=== PATIENT | female | born 1950 | race Caucasian/White ===

== ENCOUNTER 2018-08-13 11:39 | Emergency (ER) | payer BC ==
[~2018-08-13] VITALS: Ht 160 cm; Wt 60.0 kg
[2018-08-13 11:43] VITALS: BP 137/59; PULSE 80; TEMP 98.7
[2018-08-13] MEDS ORDERED: ZYRTEC 10MG10 MG PO (11:58)
[2018-08-13] MEDS ORDERED: PRESERVISIONLUT (11:58)
[2018-08-13] MEDS ORDERED: GENTAMICIN EYE D5 ML OD (12:00)
== END 2018-08-13 12:35 | disposition home or self-care (01) ==
LOC: COL.ER 11:39
DX: B99.9 Unspecified infectious disease (principal); H10.89 Other conjunctivitis

== ENCOUNTER → 2020-09-11 | Outpatient (CLI) | payer MEDICARE, BC ==
[~2020-09-11] MED LIST: GENTAMICIN EYE D5 ML OD; PRESERVISIONLUT; ZYRTEC 10MG10 MG PO
== END ==
LOC: MC.RAD 14:00
DX: R92.8 Other abnormal and inconclusive findings on diagnostic imaging of breast (principal)

== ENCOUNTER 2023-10-04 14:56 | Day surgery (SDC) | payer MEDICARE, BC ==
[2023-10-04] VITALS (7 sets, daily range): BP systolic 116–150; BP diastolic 44–71; PULSE 61–77; TEMP 98.3
[~2023-10-04] VITALS: Ht 162.6 cm; Wt 59.0 kg
[~2023-10-04 14:56] MED LIST changes: +AMOXICILLIN 8751 TAB PO; +DOXYCYCLINE 10100 MG PO; +NORCO 325 MG-51 TAB PO; +TRAVEL SICKNESS25 MG PO; +ZOFRAN 4MG T4 MG/TAB PO
[2023-10-04] MEDS ORDERED: ZETIA 10MG TAB10 MG PO (15:11)
[2023-10-04] MEDS ORDERED: BENTYL 10MG10 MG/CAP PO (15:12)
[2023-10-04] MEDS ORDERED: STOOL SOFTENER100 M2 PO (15:13)
--- NOTE | 2023-10-04 16:41 | NUR ---
PT ARRIVED TO FLOOR FROM DIRECT ADMIT AT [facility] 1515. PT IS ALERT AND ORIENTED. PT HAS NO PAIN. THIS NURSE AND THE CHARGE NURSE BOTH TRIED TO START IV ON PT AND NIETHER ATTEMPT WAS SUCCESSFUL. PACU NURSES CAME TO GET PT FOR SURGERY. THEY SAID THEY WOULD ATTEMPT TO START IV.
[2023-10-04] MEDS ORDERED: NORCO 325 MG-51 TAB PO (17:02)
[2023-10-04] MEDS ORDERED: PYRIDIUM 100MG100 MG PO (17:02)
--- NOTE | 2023-10-04 19:00 | NUR ---
returned from PACU, awake and alert, IV infusing, assisted into bathroom but was unable to void at this time
--- NOTE | 2023-10-04 19:30 | NUR ---
sitting up in bed and having something to eat and tolerates well, at bedside
--- NOTE | 2023-10-04 21:00 | NUR ---
assisted up to bathroom by DROP WIRE OPERATOR and was able to void, then back to bed and ready to go home
--- NOTE | 2023-10-04 21:30 | NUR ---
assessment completed, heart rate strong and regular, lungs CTA, bowel sounds present in 4 quads, peripheral pulses present in 4 extremites, she remains alert and oriented, skin warm and dry
--- NOTE | 2023-10-04 21:45 | NUR ---
up and getting dressed, discharge instructions given to patient and her , verbalizes understanding
--- NOTE | 2023-10-04 22:07 | NUR ---
discharged per WC
== END 2023-10-04 22:07 | disposition home or self-care (01) ==
LOC: SDCO 14:56 → SURG 14:59 → SDCO 17:00
DX: N20.1 Calculus of ureter (principal); N13.4 Hydroureter; N39.3 Stress incontinence (female) (male)
CPT/HCPCS: OP; C1769; C2617; J0690; J1100; J2405; J2704; J3010; Q9967

== ENCOUNTER 2023-10-13 09:07 | Day surgery (SDC) | payer MEDICARE, BC ==
[2023-10-13] VITALS (7 sets, daily range): BP systolic 108–153; BP diastolic 42–89; PULSE 60–78; TEMP 97–98
[~2023-10-13] VITALS: Ht 162.6 cm; Wt 58.8 kg
[~2023-10-13 09:07] MED LIST changes: +BENTYL 10MG10 MG/CAP PO; +PYRIDIUM 100MG100 MG PO; +STOOL SOFTENER100 M2 PO; +ZETIA 10MG TAB10 MG PO
[2023-10-13] MEDS ORDERED: MIRALAX PA17 GM/Dose PO (10:19)
[2023-10-13] MEDS ORDERED: CREON 120000 U-1 ECC PO (10:20)
[2023-10-13] MEDS ORDERED: VALTREX 50500 MG/TAB PO (10:21)
[2023-10-13] MEDS ORDERED: DULCOLAX TAB5 MG PO (10:21)
[2023-10-13] MEDS ORDERED: NATURAL MAGNES200 MG PO (10:22)
[2023-10-13] MEDS ORDERED: VIACTIV PO (10:23)
[2023-10-13] MEDS ORDERED: FLONASEALLERGY NS (10:24)
[2023-10-13] MEDS ORDERED: RETIN-A CR0.05 20GM TP (10:24)
[2023-10-13] MEDS ORDERED: SYSTANE GEL EYE10 ML OP (10:25)
[2023-10-13] MEDS ORDERED: GENTAMICIN EYE D5 ML OD (10:26)
[2023-10-13] MEDS ORDERED: PYRIDIUM 100MG100 MG PO (11:09)
--- NOTE | 2023-10-13 13:35 | NUR ---
1215 RETURNS TO ROOM 2 PER CART. AWAKE, ALERT. RESP UNLABORED. DENIES DISCOMFORT. VITAL SIGNS OBTAINED. CALL LIGHT AT SIDE. IN ROOM 1230 AWAKE, ALERT. CONVERSES WITH . DENIES PAIN 1245 TOLERATES PO JUICE AND MUFFIN WITHUT NAUSEA 1300 DISCHARGE INSTRUCTIONS REVIEWED. PATIENT VERBALIZES UNDERSTANDING. COPY PROVIDED IN DISCHARGE FOLDER 1315 AMBULATES TO BATHROOM WITH STANDBY ASSIST. ADMITS TO URINATING LIGHT PINK URINE WITHOUT DIFFICULTY, THEN AMBULATES BACK TO ROOM WITH STANDBY ASSIST. DRESSES WITH AT SIDE
== END 2023-10-13 13:38 | disposition home or self-care (01) ==
LOC: SDCO 09:07
DX: N20.1 Calculus of ureter (principal)
CPT/HCPCS: C1769; C2617; J0690; J2405; J2704; J3010; J7120

== ENCOUNTER → 2024-01-06 | Outpatient (CLI) | payer MEDICARE, BC ==
[~2024-01-06] MED LIST changes: +CREON 120000 U-1 ECC PO; +DULCOLAX TAB5 MG PO; +FLONASEALLERGY NS; +Iohexol 300 - 100 ML VIAL IV ONE; +MIRALAX PA17 GM/Dose PO; +NATURAL MAGNES200 MG PO; +NS 100 ML IV SCH; +RETIN-A CR0.05 20GM TP; +SYSTANE GEL EYE10 ML OP; +VALTREX 50500 MG/TAB PO; +VIACTIV PO
== END ==
LOC: COL.RAD 14:38
DX: N13.2 Hydronephrosis with renal and ureteral calculous obstruction (principal); R93.89 Abnormal findings on diagnostic imaging of other specified body structures
CPT/HCPCS: Q9967

== ENCOUNTER 2024-06-27 09:58 | Day surgery (SDC) | payer MEDICARE, BC ==
[~2024-06-27] VITALS: Ht 162.6 cm; Wt 60.0 kg
[~2024-06-27 09:58] MED LIST changes: -Iohexol 300 - 100 ML VIAL IV ONE; -NS 100 ML IV SCH; +THE MEDICINE S200 M2 PO; +VITAMIN B12 781 TAB PO; +VITAMIN C500 MG PO
[2024-06-27] MEDS ORDERED: LR 1,000 ML IV SCH (10:00)
[2024-06-27] MEDS ORDERED: VIACTIV PO (10:22)
[2024-06-27] MEDS ORDERED: HCTZ12.5TAB PO (10:25)
[2024-06-27] MEDS ORDERED: FOSAMAX 70MG TA70 MG PO (10:28)
[2024-06-27 10:48] VITALS: BP 114/53; PULSE 53; TEMP 98.1
[2024-06-27] MEDS ORDERED: VALTREX 50500 MG/TAB PO (10:56)
[2024-06-27] MEDS ORDERED: NS 10 ML IV ONE (11:18)
[2024-06-27] MEDS ORDERED: Lidocaine PF 2% (20 MG/ML) 5 ML VIAL ONE (11:18)
[2024-06-27] MEDS ORDERED: Ondansetron 4 MG/2 ML VIAL ONE (11:18)
[2024-06-27] MEDS ORDERED: fentaNYL 50 MCG/ML 2 ML VIAL ONE (11:18)
[2024-06-27] MEDS ORDERED: dexAMETHasone 10 MG/ML VIAL ONE (11:18)
[2024-06-27] MEDS ORDERED: Glycopyrrolate 0.2 MG/ML 1 ML VIAL ONE (12:13)
[2024-06-27] MEDS ORDERED: hydrALAZINE 20 MG/ML 1 ML VIAL IV PRN (13:30)
[2024-06-27] MEDS ORDERED: Ondansetron 4 MG/2 ML VIAL IV PRN ×3 (13:30→14:30)
[2024-06-27] MEDS ORDERED: droPERidol 2.5 MG/ML 2 ML VIAL IV PRN (13:30)
[2024-06-27] MEDS ORDERED: fentaNYL 50 MCG/ML 1 ML SYRINGE/VIAL [PACU/SDC ONLY] IV PRN ×2 (13:30→14:30)
[2024-06-27] MEDS ORDERED: HYDROmorphone 1 MG/1 ML SYRINGE [PACU/SDC ONLY] IV PRN ×2 (13:30→14:30)
[2024-06-27] MEDS ORDERED: Hyoscyamine 0.125 MG Sublingual TAB SL PRN (14:15)
[2024-06-27] MEDS ORDERED: Naloxone 0.4 MG/ML VIAL IV PRN (14:15)
[2024-06-27] MEDS ORDERED: Acetaminophen 325 MG TAB PO PRN (14:15)
[2024-06-27] MEDS ORDERED: Iohexol 300 - 10 ML VIAL URETER -L ONE (14:18)
[2024-06-27] MEDS ORDERED: Lidocaine 2% (20 MG/ML) 20 ML UROJET UR ONE (14:30)
[2024-06-27 15:05] VITALS: BP 122/54; PULSE 55; TEMP 97.1
[2024-06-27] MEDS ORDERED: Acetaminophen 500 MG TAB PO SCH (15:09)
[2024-06-27 15:20] VITALS: BP 128/64; PULSE 58
--- NOTE | 2024-06-27 15:24 | NUR ---
1505: PT TO BAY 2 FROM PACU. ALERT AND ORIENTED. REPORT RECEIVED FROM OMAR TILLEY. PT DENIES PAIN OR NAUSEA. REQUESTING MUFFIN AND ICE WATER. VSS. ASSESSMENT COMPLETE. BREATHING EVEN AND UNLABORED ON RA. NO FURTHER NEEDS NOTED. RESTING IN COT. CALL LIGHT IN REACH. , MILE, AT BEDSIDE.
--- NOTE | 2024-06-27 15:26 | NUR ---
1520: PT ALERT AND ORIENTED. TOLERATING MUFFIN AND WATER. DENIES PAIN AND NAUSEA. RESTING IN COT. NO FURTHER NEEDS NOTED. CALL LIGHT IN REACH. , MILE, AT BEDSIDE.
[2024-06-27 15:35] VITALS: BP 136/69; PULSE 54
--- NOTE | 2024-06-27 16:04 | NUR ---
1535: ALERT AND ORIENTED. DENIES NAUSEA AND PAIN. AMBULATED TO BATHROOM WITH STAND-BY ASSIST AND WAS ABLE TO URINATE. IV DC'D AT THIS TIME. PT DENIES ASSISTANCE WITH DRESSING. 1545: DISCHARGE EDUCATION COMPLETED AT THIS TIME. PT STATED UNDERSTANDING OF HOME AND FOLLOW-UP CARE. DISCHARGE PAPERWORK GIVEN TO PT. 1550: PT OFF UNIT PER WHEELCHAIR AT THIS TIME. PT DISCHARGED TO HOME W/ , MILE, PER PERSONAL VEHICLE.
== END 2024-06-27 15:50 | disposition home or self-care (01) ==
LOC: SDCO 09:58
DX: N13.2 Hydronephrosis with renal and ureteral calculous obstruction (principal); Z85.831 Personal history of malignant neoplasm of soft tissue; Z92.3 Personal history of irradiation
CPT/HCPCS: C1769; C2617; J0690; J1100; J2405; J2704; J3010; Q9967

== ENCOUNTER → 2024-09-10 | Outpatient (CLI) | payer MEDICARE, BC ==
[~2024-09-10] MED LIST changes: +FOSAMAX 70MG TA70 MG PO; +HCTZ12.5TAB PO; +Iohexol 300 - 100 ML VIAL IV ONE; +NS 100 ML IV SCH
== END ==
LOC: COL.RAD 08:48
DX: N13.2 Hydronephrosis with renal and ureteral calculous obstruction (principal); N13.4 Hydroureter; J92.9 Pleural plaque without asbestos; R93.89 Abnormal findings on diagnostic imaging of other specified body structures
CPT/HCPCS: Q9967